=== PATIENT | male | born 1955 | race Caucasian/White ===

== ENCOUNTER 2024-01-15 08:17 | Outpatient (AMB) | payer MEDICARE, OTHER, SELFPAY ==
--- NOTE | 2024-01-15 08:26 | AM.OFFWIN_ITS ---
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 Intake Note: Pt is here for wheezing and coughing with chest congestion pt says he has asthma pt says he was tested 2 weeks ago for flu and covid and this was Neg but he is still not gotten any better Allergies No Known Allergies Allergy (Verified 01/15/24 08:30) HPI HPI Comments History of Present Illness Details He presents to office with cough He has hx of asthma and uses proair prn No nebulizer at home He said lungs congested and seems to be a yearly infection He has had a cold for a while which has traveled to lungs Pt started with a cold 2 weeks ago; seen in [place] and was negative covid/flu and told it was a virus Was using OTC medicine without relief Some phlegm No fevers, chills, fatigue, body aches 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 Review of Systems Const Denies body aches, Denies chills, Denies fatigue and Denies fever(s) ENT Denies otalgia, Denies nasal discharge, Denies sore throat and Denies throat swelling Card Denies chest pain and Reports dyspnea Resp Reports chest congestion, Reports cough, Reports dyspnea and Reports wheezing Musc Denies myalgias Endo Denies fatigue Aller/Immun Denies throat swelling and Reports wheezing Physical Exam Vital Signs: Last Vital Signs Temp 98.1 F 01/15/24 08:33 Pulse 73 01/15/24 08:33 BP 120/88 01/15/24 08:33 Pulse Ox 94 01/15/24 08:33 Oxygen Delivery Method Room Air 01/15/24 08:33 General: Non-toxic, NAD. Speaking full sentences. Skin: Warm dry throughout Eye: EOMI HENT: Airway patent. Uvula midline. No pharyngeal erythema or edema. 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 Bilateral canals clear. TM non-erythematous, non-bulging. No TM perforation or hemotympanum noted. Respiratory: RHonchi and wheeze bilaterally. No tachypnea. Cardiac: RRR. No murmur MSK: Full ROM extremities. Neurology: A/O. No aphasia or facial droop. Gait without abnormality Psych: Good mood and affect Office Procedures Nebulizer Treatment Nebulizer Treatment [id number]/[id number] RX initial, or Nebulizer Subsequent Treatment Office Meds albuterol sulfate 2.5 mg/3 mL (0.083 %) solution for nebulization Performing Provider: Teresa Black PA-C Performing Location: [facility] [facility] Administered by: Shakira Blake RN on 01/15/24 08:50 Dose Route Admin Location Dispensed Lot Number Expiration Date NDC Student [employer] 2.5 mg inhalation 3 mL [id number] 01/03/25 18400-582-18 [employer] Assessment & Plan Assessment & Plan (1) Wheeze: Code(s): R06.2 - Wheezing Plan: Patient seen and evaluated. + wheeze and rhonchi on examination Nebulizer in office ordered and pt will be re-evaluated Re-eval pt has great improvment of aeration and decreased wheeze. Overall he felt much better Doxy/tessalon and prednisone to pharmacy to take with food Patient gave verbal understanding and had no additional questions or concerns at time of discharge All questions answered Orders: Orders AMB Nebulizer Treatment Today R06.2 - Wheezing Medications: New benzonatate 200 mg PO BID-TID PRN 14 caps 0RF cough prednisone 40 mg (2 x 20 mg) PO DAILY 8 tabs 0RF doxycycline hyclate 100 mg PO DAILY 14 caps 0RF Coding Level of Care Code New Pt Level 4 (71393) Diagnoses Wheeze R06.2 CPT Codes Nebulizer Treatment - Nebulizer Treatment, initial or subsequent: 08886- Nebulizer/MDI RX initial, or Nebulizer Subsequent Treatment ([id number])
[2024-01-15 08:33] VITALS: BP 120/88; PULSE 73; TEMP 36.7; O2SAT 94
== END 2024-01-15 10:22 | disposition home or self-care (01) ==
PROVIDERS: Visit Provider Physician Assistant
DX: R06.2 Wheezing (principal)
CPT/HCPCS: 94640; 99204; J7613